=== PATIENT | male | born 1970 | race Caucasian/White ===

== ENCOUNTER 2020-01-24 07:30 | Inpatient (IN) ==
[2020-01-18 13:43] LABS: Appearance,Urine CLEAR; Bilirubin,Urine NEG (NEG); Color,Urine STRAW; Culture Indicated,Urine NO; Glucose,Urine (UA) NEGATIVE (NEG); Ketones,Urine NEG (NEG); Leukocyte Esterase,Urine NEG /uL (NEG); Nitrate,Urine NEG (NEG); Protein,Urine NEG (NEG); Specific Gravity,Urine 1.006 (1.000-1.035); Urine Blood NEG mg/dL (<0.03); Urobilinogen,Urine NEG (NEG)
[2020-01-18 17:19] LABS: Basophils # (Auto) 0.03 K/mcL (0.00-0.30); Basophils % (Auto) 0.5 % (0.0-2.0); Eosinophils # (Auto) 0.09 K/mcL (0.00-0.70); Eosinophils % (Auto) 1.5 % (0.0-7.0); Granulocytes % (Auto) 58.2 % (38.0-78.0); Hemoglobin 14.6 g/dL (13.7-17.5); Lymphocytes # (Auto) 1.71 K/mcL (1.50-4.80); Lymphocytes % (Auto) 29.1 % (15.5-49.0); Mean Cell Volume 90.2 fL (80.0-100.0); Mean Corpuscular HGB Conc 33.2 g/dL (31.0-36.0); Mean Platelet Volume 11.8 fL (7.4-10.4); Monocytes # (Auto) 0.63 K/mcL (0.10-0.90); Monocytes % (Auto) 10.7 % (1.0-12.0); Platelet Count 224 K/mcL (140-440); RBC 4.88 M/mcL (4.63-6.08); Red Cell Distribution Width 12.6 % (11.5-14.5); WBC 5.9 K/mcL (4.50-11.00)
[2020-01-18 17:34] LABS: ALT/SGPT 22 U/l (0-40); AST/SGOT 16 U/l (0-37); Albumin 4.4 gm/dL (3.2-5.2); Albumin/Globulin Ratio 1.6 (1.0-2.3); Alkaline Phosphatase 48 U/L (39-117); Bilirubin,Total 0.4 mg/dL (0.0-1.0); Blood Urea Nitrogen 14 mg/dl (6-20); Calcium 9.3 mg/dl (8.6-10.4); Carbon Dioxide 27 mmol/L (22-30); Chloride 99 mmol/L (96-108); Globulin 2.7 gm/dL (2.2-3.7); Glomerular Filtration Rate 111; Glucose 81 mg/dL (70-105)
[2020-01-18 18:15] LABS: Estimated Average Glucose(eAG) 108 mg/dL; Hemoglobin A1C 5.4 % HGB (4.0-6.0)
[~2020-01-24 07:30] MED LIST: 0.9 % SODIUM CHLORIDE 9 ML, KETOROLAC 30 MG, ROPIVACAINE HCL/PF 49.5 ML, EPINEPHrine 0.... IJ SCH; CELECOXIB 200 MG CAPSULE PO SCH; PREGABALIN 75 MG CAPSULE PO SCH; ceFAZolin 2 GM in DEXTROSE 5% IN WATER 50 ML IV SCH; oxyCODONE 10 MG TAB.ER.12H PO SCH
[2020-01-24] MEDS ORDERED: IPRATROPIUM/ALBUTEROL 3 ML AMPUL.NEB NEB PRN ×2 (09:00→12:31)
[2020-01-24] MEDS ORDERED: SCOPOLAMINE 1 PATCH PATCH TOPICAL PRN (09:00)
[2020-01-24] MEDS ORDERED: MIDAZOLAM 5 MG/5 ML VIAL IV ONE (10:45)
[2020-01-24] MEDS ORDERED: ePHEDrine 50 MG/ML AMPUL IV ONE (10:45)
[2020-01-24] MEDS ORDERED: DEXAMETHASONE 10 MG/ML VIAL IV ONE (10:45)
[2020-01-24] MEDS ORDERED: ROPIVACAINE HCL/PF 20 ML VIAL IJ ONE (10:45)
[2020-01-24] MEDS ORDERED: ONDANSETRON 4 MG/2 ML VIAL IV ONE (10:45)
[2020-01-24] MEDS ORDERED: PHENYLEPHRINE 10 MG/ML VIAL IV ONE (10:45)
[2020-01-24] MEDS ORDERED: KETAMINE 100 MG/ML ML IV ONE (10:45)
[2020-01-24] MEDS ORDERED: PROPOFOL 200 MG/20 ML VIAL IV ONE (10:45)
[2020-01-24] MEDS ORDERED: GLYCOPYRROLATE 0.2 MG/ML VIAL IV ONE (10:45)
[2020-01-24] MEDS ORDERED: LIDOCAINE HCL/PF 100 MG/5 ML SYRINGE IV ONE (10:45)
[2020-01-24] MEDS ORDERED: TRANEXAMIC ACID 1,000 MG/10 ML VIAL IV ONE ×2 (10:45→12:32)
[2020-01-24] MEDS ORDERED: BENZOCAINE/MENTHOL 1 LOZENGE PO PRN ×2 (12:31→12:32)
[2020-01-24] MEDS ORDERED: NALOXONE HCL 0.4 MG/ML VIAL IV PRN (12:31)
[2020-01-24] MEDS ORDERED: LABETALOL 5 MG/ML ML IV PRN (12:31)
[2020-01-24] MEDS ORDERED: METOPROLOL TARTRATE 5 MG/5 ML VIAL IV PRN (12:31)
[2020-01-24] MEDS ORDERED: PROMETHAZINE 25 MG/ML VIAL IV PRN (12:31)
[2020-01-24] MEDS ORDERED: METHOCARBAMOL 1,000 MG/10 ML VIAL IV PRN (12:31)
[2020-01-24] MEDS ORDERED: ONDANSETRON 4 MG/2 ML VIAL IV PRN ×2 (12:31→12:32)
[2020-01-24] MEDS ORDERED: ACETAMINOPHEN 1,000 MG/100 ML BOTTLE IV ONE (12:31)
[2020-01-24] MEDS ORDERED: FLUMAZENIL 0.1 MG/ML ML IV PRN (12:31)
[2020-01-24] MEDS ORDERED: LACTATED RINGERS 250 ML IV PRN (12:31)
[2020-01-24] MEDS ORDERED: fentaNYL 100 MCG/2 ML VIAL IV PRN (12:31)
[2020-01-24] MEDS ORDERED: POLYETHYLENE GLYCOL 3350 17 GM PACKET PO PRN (12:32)
[2020-01-24] MEDS ORDERED: HYDROmorphone 2 MG/ML VIAL IV PRN (12:32)
[2020-01-24] MEDS ORDERED: FLEETS ADULT ENEMA PR PRN (12:32)
[2020-01-24] MEDS ORDERED: BISACODYL 10 MG SUPP.RECT PR PRN (12:32)
[2020-01-24] MEDS ORDERED: MAGNESIUM HYDROXIDE 30 ML ORAL.SUSP PO PRN (12:32)
--- NOTE | 2020-01-24 12:32 | Brief Operative Note ---
Date of procedure: 01/24/20 Pre-op diagnosis: R knee DJD Post-op diagnosis: same Procedure: Right robotic assisted total knee arthroplasty Grafts/Implants: Yes ([place] Triathlon 5 CR femur, 5 tibia, 10mm insert, 33 patella) Anesthesia: spinal, GLMA Findings: arthritis Complications: none Surgeon: Arnaldo Portillo Deputy Juvenile Officer: Darwin Jones Estimated blood loss (cc): 30 Specimens Removed/Pathology: none sent Condition: stable Disposition: PACU
[2020-01-24] MEDS ORDERED: OMEPRAZOLE 20 MG CAPSULE PO PRN (12:35)
[2020-01-24] MEDS ORDERED: LACTATED RINGERS 1,000 ML IV SCH (12:45)
--- NOTE | 2020-01-24 12:57 | Operative Note ---
DATE OF OPERATION: 01/24/2020 PREOPERATIVE DIAGNOSIS: Right knee degenerative joint disease. POSTOPERATIVE DIAGNOSIS: Right knee degenerative joint disease. PROCEDURE PERFORMED: Right robotic-assisted total knee arthroplasty placing a Marsha Triathlon size 5 cruciate retaining femoral component, size 5 tibial baseplate, a 10 mm X3 tibial insert with a 33 mm patellar button. SURGEON: Arnaldo Portillo M.D. GRIDCAP MACHINE OPERATOR: Marcelino Jones PA-C. The PA's assistance was required for the safe and efficient completion of the entire case. This provider's expertise and technical skill were required throughout the case. The PA assisted with preoperative coordination, intraoperative retraction, wound closure, dressing and splint application, as well as postoperative documentation and care coordination. ANESTHESIA: Spinal plus general. DRAINS: None. SPECIMENS: Bone cuts which were discarded. BLOOD LOSS: 50 mL. COMPLICATIONS: None. POSTOPERATIVE CONDITION: Stable. INDICATIONS FOR SURGERY: This is a 49-year-old male who had a remote history of a femur fracture with a retrograde intramedullary rodding. He has had longstanding knee pain since with remote prior arthroscopy, as well as long-term intraarticular corticosteroid injections that were no longer controlling his pain. Radiographs showed patellofemoral joint space narrowing, as well as some medial joint space narrowing. FINDINGS AT SURGERY: He did have full-thickness cartilage loss off the patellofemoral joint, as well as the medial femoral condyle. Post implantation showed good limb alignment, patellar tracking, and joint stability. PROCEDURE IN DETAIL: The patient had been seen preoperatively. Informed consent had been obtained after discussion of risks and benefits of surgery. Risks including, but not limited to, bleeding, possibly requiring transfusion; infection, possibly requiring implant removal and prolonged IV antibiotics; injury to nerves, blood vessels, and other surrounding structures; anesthetic risks; incomplete or no resolution of symptoms; swelling; stiffness; pain; instability; DVT and pulmonary embolus risks; and the possibility of needing further revision joint surgery. Patient understood and wished to proceed. Correct operative site was marked in preoperative holding, and patient was taken to the operating room and general anesthesia was induced. The right lower extremity was then prepped and draped in normal sterile fashion, and a timeout was performed verifying patient name, operative site, and plan. Ioban was placed over all skin surfaces and an Esmarch was used to exsanguinate the extremity, and tourniquet was inflated to 300 mmHg. A midline incision was made with a scalpel through skin and subcutaneous tissue, then IrriSept was irrigated and a medial parapatellar arthrotomy was made, and then a subperiosteal exposure was done of the anterior medial tibia. Anterior horns of the menisci were removed, as well as retropatellar fat pad. ACL was transected. We then did a resection of the patella freehand, premeasuring thickness and then placing a cut protector after. We then placed our femoral and tibial checkpoints, and then a scalpel was used to make two stab incisions over the femur and two over the tibia and bicortical pins placed. The arrays were connected. The green probe was used to identify medial and lateral malleoli and double-checks were made with the green probe of the femoral and tibial check points. Blue probe was then used to do our mapping. A rongeur was used to remove osteophytes. We then used the spoons to check our flexion-extension gaps and made adjustments to get as close to 17 mm gaps on all four numbers as possible. Once this was completed, we then used the robotic arm to make our bone cuts. The tibia was prepared with the boss reamer and keel punch and externally rotated as bone coverage would allow. A keeled tibial trial was placed, and the femur was elevated. Curved osteotome and curet were used to remove posterior osteophytes. Femoral trial was then impacted and pinned into place. This was placed flush along the lateral cortex of the femur and then peg holes were drilled. A 9 insert trial was placed and then the knee was taken into extension. We then prepared the patella medializing maximally and sized this to a 33 patella. We then checked the patellar tracking and it was stable. We then removed trial implants. Definitive implants were opened while the joint was irrigated with IrriSept. After waiting a minute, we pulse lavaged with saline. Antibiotic cement was mixed and then the cancellous bone surfaces were dried with the CO2 gun. We then cemented the tibia, followed by the femur. Excess cement was removed, and the trial insert was placed, and the knee was taken into extension. The patella was then cemented. After excess cement was removed, we filled the joint with IrriSept. The tibial and femoral check points were removed. The extension was checked and then we removed our arrays and our pins. We injected pain cocktail in the pericapsular and subcutaneous tissues. Once cement had fully hardened, we flexed the knee up. We removed the insert trial, injected pain cocktail in the posteromedial capsule. We then opened a 10 mm X3 insert, and this was carefully impacted and verified to be fully seated. The knee was then placed in extension and filled with IrriSept. After a minute it was copiously pulse lavaged with saline. We then flexed the knee to 45 degrees of flexion. A #2 FiberWire [id number] was used around the superior quadrant of the patella, #1 Vicryl [id number] around the inferior quadrant. Running #1 Vicryl was used for patellar tendon and quad tendon. Final IrriSept irrigation was done, after a minute final pulse lavage, and then 2-0 Monocryl was used for subcutaneous and patrizia for skin. Xeroform and sterile dressing were applied. Tourniquet was released. The patient was awakened, extubated, and transferred to recovery in stable condition. [email or web address] Job ID: [id number] Doc ID: [id number] Arnaldo Portillo MD
--- NOTE | 2020-01-24 13:43 | XRay Report ---
CLINICAL INFORMATION: Post-op total knee. COMPARISON: None. FINDINGS: Total knee prostheses is anatomically aligned. Malunified old fracture distal femoral diaphysis demonstrates only minimal cortical thickening and deformity. No other osseous abnormalities. Soft tissue swelling seen as expected. IMPRESSION: Negative Interpreted and Authenticated by: Daniel Viramontes 01/24/20
[2020-01-24] MEDS: HYDROcodone/APAP 10/325MG TABLET PO PRN ×3 (14:51→23:09)
[2020-01-24] MEDS: 0.9 % SODIUM CHLORIDE 10 ML SYRINGE IV SCH ×2 (15:44→21:28)
[2020-01-24] MEDS: 0.9 % SODIUM CHLORIDE 1,000 ML IV SCH ×2 (17:51→23:31)
[2020-01-24] MEDS: ceFAZolin 1 GM VIAL IV SCH ×2 (17:52→23:50)
[2020-01-24] MEDS: KETOROLAC 30 MG/ML VIAL IV SCH ×2 (17:55→23:50)
[2020-01-24] MEDS ORDERED: SENNOSIDES 1 TABLET PO SCH (21:00)
[2020-01-24] MEDS: DOCUSATE SODIUM 100 MG CAPSULE PO SCH (21:25)
[2020-01-24] MEDS: ASPIRIN 81 MG TAB.CHEW PO SCH (21:25)
[2020-01-25] MEDS: HYDROcodone/APAP 10/325MG TABLET PO PRN ×3 (02:53→11:05)
[2020-01-25] MEDS: KETOROLAC 30 MG/ML VIAL IV SCH (05:38)
[2020-01-25] MEDS: 0.9 % SODIUM CHLORIDE 10 ML SYRINGE IV SCH (05:38)
[2020-01-25] MEDS: DOCUSATE SODIUM 100 MG CAPSULE PO SCH (08:15)
[2020-01-25] MEDS: ASPIRIN 81 MG TAB.CHEW PO SCH (08:15)
[2020-01-25] MEDS: 0.9 % SODIUM CHLORIDE 1,000 ML IV SCH (08:30)
--- NOTE | 2020-01-25 08:48 | Discharge Summary ---
Ortho Discharge - TKA - Patient Instructions Diet: Regular Diet Activity: weight bearing as tolerated Total Knee Protocol: For Total Knee: Start ROM BING with stationary bike or rocking chair. Work on gaining full extension of knee. Posterior dislocation precautions provided. Hip abductor strengthening and gait training instructions provided. Apply Cryocuff as instructed. Dressing Care: Other (may shower with silver dressing on, remove at 7 days) - Follow Up Plan Follow Up Appointments: Darwin Jones PA-C [Physician Psychology Clinician] - Disposition: Home, Self-Care Prognosis: Good Rehab Potential: Good - Orders For Discharge Additional Discharge Orders: Physical Therapy at Discharge - TKA Location: None Selected Toilet Riser Discharge Order Location: None Selected Walker Location: None Selected
== END 2020-01-25 11:30 | disposition home or self-care (01) | DRG 470 ==
LOC: MEDSUR 09:04
PROVIDERS: ADMIT Orthopaedic Surgery; ATTEND Orthopaedic Surgery